=== PATIENT | male | born 1990 | race Caucasian/White ===

== ENCOUNTER 2017-02-18 00:15 | Emergency (ER) | payer OTHER ==
[2017-02-18 05:34] VITALS: BP 137/72
--- NOTE | 2017-02-18 07:46 | RAD ---
HISTORY: Finger injury and deformity COMPARISONS: None VIEWS: 3, Frontal, lateral, and oblique views of the fifth digit of the right hand FINDINGS: BONE DENSITY: Normal. BONES: There is minimal density along the volar aspect of the head of the proximal phalanx of the fifth digit. JOINTS: There is no arthropathy. The finger is held in extension at the fifth MCP joint. ALIGNMENT: There is no dislocation. SOFT TISSUES: Unremarkable. OTHER FINDINGS: None. IMPRESSION: PROBABLE AVULSION INJURY OF THE VOLAR PLATE OF THE FIFTH PIP JOINT
--- NOTE | 2017-02-18 07:47 | RAD ---
HISTORY: Right knee injury COMPARISONS: None VIEWS: 4, Frontal, lateral, axial, and oblique views of the right knee FINDINGS: BONE DENSITY: Normal. BONES: There is no displaced fracture. JOINTS: There is no arthropathy. There is no suprapatellar joint effusion or lipohemarthrosis. ALIGNMENT: There is no dislocation. SOFT TISSUES: There is extensive prepatellar soft tissue swelling OTHER FINDINGS: None. IMPRESSION: SOFT TISSUE SWELLING. NO ACUTE OSSEOUS INJURY. IF SYMPTOMS PERSIST, RECOMMEND REPEAT IMAGING.
--- NOTE | 2017-02-18 08:01 | RAD ---
Indication: Post reduction of dislocation RIGHT fifth finger. 00 44 Comparison: 0044 hours February 18, 2017. Technique: 3 views RIGHT fifth finger. REPORT AND IMPRESSION: Hyperextension at the metacarpal phalangeal joint without compelling subluxation or dislocation. Normal proximal and distal interphalangeal joint alignment. Subtle amorphous appearing calcification volar to the head of the proximal phalanx may reflect calcific tendinopathy or potentially a subtle volar plate avulsion fracture from the base of the middle phalanx. Mild fusiform soft tissue swelling proximally.
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
== END 2017-02-18 05:00 | disposition home or self-care (01) ==
LOC: ED 00:15
DX: S63.256A Unspecified dislocation of right little finger, initial encounter (principal); M25.561 Pain in right knee; F17.210 Nicotine dependence, cigarettes, uncomplicated; Y09 Assault by unspecified means; Y93.9 Activity, unspecified; Y92.149 Unspecified place in prison as the place of occurrence of the external cause
CPT/HCPCS: 73140; 99282